=== PATIENT | male | born 1970 | race Caucasian/White ===

== ENCOUNTER 2020-06-19 18:37 | Emergency (ER) | payer MEDICAID ==
[~2020-06-19] VITALS: Ht 165.1 cm; Wt 86.2 kg
[2020-06-19 18:48] VITALS: BP 119/72
--- NOTE | 2020-06-19 18:55 | NUR ---
pt states he has numbness/tingling upon waking up around 6am this morning. Pt presents with facial droop, unable to raise eyebrow symmetrically, mild weakness john hands, ewxtze-ba-jbbx-to finger test negative, arm drop test negative, pt is able to raise his lower leg for 5 seconds. 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 PMH: MURRELL'S PALSY
[2020-06-19] MEDS ORDERED: predniSONE 20 MG TAB PO ONE (19:15)
--- NOTE | 2020-06-19 19:16 | NUR ---
REPORT GAVE TO LANI KEMP. TX OF CARE AT THIS TIME.
--- NOTE | 2020-06-19 19:26 | NUR ---
RECEIVED REPORT FROM MARILEE GARIBAY
[2020-06-19 19:47] VITALS: BP 119/72
--- NOTE | 2020-06-19 19:48 | NUR ---
Patient discharged with v/s stable. Written and verbal after care instructions given and explained. Patient alert, oriented and verbalized understanding of instructions. Ambulatory with steady gait. All questions addressed prior to discharge. ID band removed. Patient advised to follow up with PMD. Rx of MEDROL DOSEPAK, ACYCLOVIR, PREDNISONE, AND IBUPROFEN given. Patient educated on indication of medication including possible reaction and side effects. Opportunity to ask questions provided and answered.
== END 2020-06-19 19:47 | disposition home or self-care (01) ==
LOC: MED 18:37
DX: R20.0 Anesthesia of skin (principal); R20.2 Paresthesia of skin; G51.0 Bell's palsy
CPT/HCPCS: 82948; 99283; J7512

== ENCOUNTER 2022-09-18 21:35 | Emergency (ER) | payer BC, MEDICAID ==
[~2022-09-18] VITALS: Ht 162.6 cm; Wt 95.3 kg
[2022-09-18 22:37] VITALS: BP 139/95
--- NOTE | 2022-09-18 22:42 | NUR ---
PT AMB TO ER BED 04
--- NOTE | 2022-09-18 23:15 | NUR ---
52 Y/O M presents with stabbing chest pain 03/12 xyesterday with SOB. pt states pain radiates to bilater back. pt states he has a cough when he is lying back due to being SOB. pt denies taking any medication at home. skin intact, A&Ox4, and denies any blood thinners. PMH-pt denies NKA
--- NOTE | 2022-09-19 00:15 | NUR ---
Dr. Vargas at bedside
[2022-09-19] MEDS ORDERED: ACETAMIN/CODEINE 120/12MG-5ML 5 ML UDC PO ONE (00:20)
--- NOTE | 2022-09-19 00:26 | NUR ---
lab at bedside
[2022-09-19 00:35] LABS: BASOPHILS # (AUTO) 0.1 K/uL (0.00-0.22); BASOPHILS % (AUTO) 0.7 % (0.0-2.0); EOSINOPHILS # (AUTO) 0.6 K/uL (0-0.4); EOSINOPHILS % (AUTO) 5.2 % (0.0-4.0); HEMATOCRIT 39.6 % (36-52); HEMOGLOBIN 13.1 g/dL (12.0-18.0); LYMPHOCYTES # (AUTO) 2.2 K/uL (2.0-11.5); LYMPHOCYTES % (AUTO) 19.1 % (20.5-51.1); MEAN CORPUSCULAR HEMOGLOBIN 28 pg (27-31); MEAN CORPUSCULAR HGB CONC 33 g/dL (33-37); MEAN CORPUSCULAR VOLUME 85.1 fL (80-94); MONOCYTES % (AUTO) 8.5 % (1.7-9.3); NEUTROPHILS # (AUTO) 7.6 K/uL (1.8-7.7); NEUTROPHILS % (AUTO) 66.5 % (42.2-75.2); PLATELET COUNT (AUTO) 317 K/uL (140-450); RED BLOOD CELL COUNT(AUTO) 4.65 MIL/uL (4.20-6.10); RED CELL DISTRIBUTION WIDTH 13.4 % (11.6-13.7); WHITE BLOOD COUNT (AUTO) 11.5 K/uL (4.8-10.8)
--- NOTE | 2022-09-19 00:40 | NUR ---
xray at bedside
[2022-09-19 00:51] VITALS: BP 158/72
[2022-09-19 00:54] LABS: CHLORIDE 103 mmol/L (98-107); POTASSIUM 3.6 mmol/L (3.5-5.1); SODIUM SERUM 140 mmol/L (136-145)
[2022-09-19 00:55] LABS: ANION GAP 12.2 (8-16); ASPARTATE AMINOTRANSFERASE 19 U/L (15-37); CARBON DIOXIDE 28.4 mmol/L (21-32); CREATININE 0.9 mg/dL (0.6-1.3); GFR ARICAN-AMERICAN 114 mL/min (>90); GLUCOSE 112 mg/dL (74-106); TOTAL BILIRUBIN 0.3 mg/dL (0.0-1.0); UREA NITROGEN, BLOOD 14 mg/dL (7-18)
[2022-09-19] MEDS ORDERED: FLONAS NS (03:18)
[2022-09-19] MEDS ORDERED: ROBAC PO (03:18)
--- NOTE | 2022-09-19 03:35 | NUR ---
Patient discharged with v/s stable. Written and verbal after care instructions given and explained. Patient alert, oriented and verbalized understanding of instructions. Ambulatory with steady gait. All questions addressed prior to discharge. ID band removed. Patient advised to follow up with PMD. Rx of Fluticasone propionate and codeine phosphate/Guaifenesi given. Opportunity to ask questions provided and answered.
== END 2022-09-19 03:35 | disposition home or self-care (01) ==
LOC: MED 21:35
DX: J20.9 Acute bronchitis, unspecified (principal); Z20.822 Contact with and (suspected) exposure to COVID-19
CPT/HCPCS: 36415; 71045; 80053; 84484; 85025; 93005; 99285

== ENCOUNTER 2023-04-07 10:02 | Emergency (ER) | payer BC ==
[~2023-04-07] VITALS: Ht 165.1 cm; Wt 95.3 kg
[~2023-04-07 10:02] MED LIST: FLONAS NS; ROBAC PO
[2023-04-07 10:08] VITALS: BP 144/85; PULSE 88; RESP 20; TEMP 99
[2023-04-07 11:05] LABS: BASOPHILS % (AUTO) 0.4 % (0.0-2.0); EOSINOPHILS # (AUTO) 0.3 K/uL (0-0.4); EOSINOPHILS % (AUTO) 2.8 % (0.0-4.0); HEMATOCRIT 41.7 % (36-52); HEMOGLOBIN 13.6 g/dL (12.0-18.0); LYMPHOCYTES # (AUTO) 1.8 K/uL (2.0-11.5); LYMPHOCYTES % (AUTO) 15.2 % (20.5-51.1); MEAN CORPUSCULAR HEMOGLOBIN 28 pg (27-31); MEAN CORPUSCULAR HGB CONC 33 g/dL (33-37); MEAN CORPUSCULAR VOLUME 86.4 fL (80-94); MONOCYTES # (AUTO) 0.7 K/uL (0.8-1.0); MONOCYTES % (AUTO) 6.2 % (1.7-9.3); NEUTROPHILS # (AUTO) 8.9 K/uL (1.8-7.7); NEUTROPHILS % (AUTO) 75.4 % (42.2-75.2); PLATELET COUNT (AUTO) 295 K/uL (140-450); RED BLOOD CELL COUNT(AUTO) 4.83 MIL/uL (4.20-6.10); RED CELL DISTRIBUTION WIDTH 13.5 % (11.6-13.7); WHITE BLOOD COUNT (AUTO) 11.8 K/uL (4.8-10.8)
[2023-04-07 11:31] LABS: INR 0.96 (0.8-1.2); PARTIAL THROMBOPLASTIN TIME 26.9 secs (22-35.6); PROTHROMBIN TIME 10.1 secs (10.8-13.4)
[2023-04-07 11:40] LABS: ALANINE AMINOTRANSFERASE 54 U/L (12-78); ALBUMIN 3.8 g/dL (3.4-5.0); ALKALINE PHOSPHATASE 110 U/L (50-136); ASPARTATE AMINOTRANSFERASE 36 U/L (15-37); CALCIUM 8.5 mg/dL (8.5-10.1); CARBON DIOXIDE 24.7 mmol/L (21-32); CHLORIDE 105 mmol/L (98-107); CREATININE 0.9 mg/dL (0.6-1.3); GFR ARICAN-AMERICAN 114 mL/min (>90); GFR NON ARICAN-AMERICAN 95 mL/min (>90); GLUCOSE 102 mg/dL (74-106); POTASSIUM 3.7 mmol/L (3.5-5.1); SODIUM SERUM 139 mmol/L (136-145); TOTAL BILIRUBIN 0.5 mg/dL (0.0-1.0); TOTAL PROTEIN, SERUM 8.3 g/dL (6.4-8.2); UREA NITROGEN, BLOOD 10 mg/dL (7-18)
[2023-04-07] MEDS ORDERED: ACETAMINOPHEN EXTRA STRENGTH 500 MG TAB PO ONE (11:45)
[2023-04-07] MEDS ORDERED: KETOROLAC 15 MG/ML VIAL IVP ONE (11:45)
[2023-04-07 13:19] VITALS: BP 133/76; PULSE 79; RESP 20; O2SAT 97
[2023-04-07] MEDS ORDERED: IBUP-2218 PO (16:25)
== END 2023-04-07 16:42 | disposition home or self-care (01) ==
LOC: MED 10:02
DX: R07.9 Chest pain, unspecified (principal); Z79.899 Other long term (current) drug therapy
CPT/HCPCS: 36415; 71045; 80053; 84484; 85025; 85379; 85610; 85730; 93005; 96374; 99285; J1885